=== PATIENT | male | born 1990 | race Two or more races ===

== ENCOUNTER 2025-03-16 07:40 | Emergency (ER) | payer MEDICAID, OTHER ==
[~2025-03-16] VITALS: Ht 177.8 cm; Wt 78.1 kg
[2025-03-16 07:45] VITALS: TEMP 97.8
[2025-03-16 08:04] VITALS: BP 138/68; PULSE 87
--- NOTE | 2025-03-16 08:05 | ED.PDOC ---
SOB-HPI HPI Comments 34-year-old male presents to the ER with a chief complaint of shortness of breath/wheezing. Patient reports on recently getting over a cold from one week ago and has been having shortness of breath for two days. Patient states that his inhalers not working so use using his mother's but has a different albuterol treatment. Patient currently has chest tightness and yellow phlegm. Last exacerbation 1 year ago Nighttime awakenings none Hospitalizations none Denies fever chills night sweats regular cough Chief Complaint: Shortness of Breath Time Seen by MD: 08:00 Reviewed notes: Nurses Notes, Medications, Allergies Information Source: Patient Mode of Arrival: Ambulatory Severity: Moderate Timing: Days Duration: Since onset, Days Context: Contact Exposure History of: Asthma Prehospital treatment: None Associated Signs and Symptoms: None Quality: Tightness Radiation: No Radiation Location: Substernal If cough with SOB: Yellow Past Medical History PAST MEDICAL HISTORY: Asthma Surgical History: Denies all surgeries Family History Family History: Reviewed,noncontributory to illness, Unknown Social History Smoker: Non-Smoker Alcohol: Denies ETOH Use Drugs: Denies Drug Use Lives In: Home Constitutional: denies: chills, diaphoresis, fatigue, fever, malaise, sweats, weakness, others EENTM: denies: blurred vision, double vision, ear bleeding, ear discharge, ear drainage, ear pain, ear ringing, eye pain, eye redness, hearing loss, mouth pain, mouth swelling, nasal discharge, nose bleeding, nose congestion, nose pain, photophobia, tearing, throat pain, throat swelling, voice changes, others Respiratory: reports: SOB at rest, shortness of breath; denies: cough, hemoptysis, orthopnea, SOB with excertion, stridor, wheezing, others Cardiovascular: denies: chest pain, dizzy spells, diaphoresis, Dyspnea on exertion, edema, irregular heart beat, left arm pain, lightheadedness, palpitations, PND, syncope, others Gastrointestinal: denies: abdomen distended, abdominal pain, blood streaked bowels, constipated, diarrhea, dysphagia, difficulty swallowing, hematemesis, melena, nausea, poor appetite, poor fluid intake, rectal bleeding, rectal pain, vomiting, others Genitourinary: denies: burning, dysuria, flank pain, frequency, hematuria, incontinence, penile discharge, penile sore, pain, testicle pain, testicle swelling, urgency, others Neurological: denies: dizziness, fainting, headache, left sided numbness, left sided weakness, numbness, paresthesia, pre-existing deficit, right sided numbness, right sided weakness, seizure, speech problems, tingling, tremors, weakness, others Musculoskeletal: denies: back pain, gout, joint pain, joint swelling, muscle pain, muscle stiffness, neck pain, others Integumetry: denies: bruises, change in color, change in hair/nails, dryness, laceration, lesions, lumps, rash, wounds, others Allergic/Immunocompromised: denies: Difficulty Healing, Frequent Infections, Hives, Itching, others Hematologic/Lymphatic: denies: anemia, blood clots, easy bleeding, easy bruising, swollen glands, others Endocrine: denies: excessive hunger, excessive sweating, excessive thirst, excessive urination, flushing, intolerance to cold, intolerance to heat, unexplained weight gain, unexplained weight loss, others Psychiatric: denies: anxiety, bipolar disorder, depression, hopeless, panic disorder, schizophrenia, sleepless, suicidal, others All Other Systems: Reviewed and Negative Physical Exam General Appearance: No Apparent Distress, Normal HEENT: Normal ENT Inspection, Pharynx Normal, TMs Normal Neck: Full Range of Motion, Non-Tender, Normal, Normal Inspection Respiratory: Chest Non-Tender, No Accessory Muscle Use, No Respiratory Distres s, Normal Breath Sounds, Wheezing Cardiovascular: No Edema, No JVD, No Murmur, No Gallop, Normal Peripheral Pulses, Regular Rate/Rhythm Breast Exam: Deferred Gastrointestinal: No Organomegaly, Non Tender, No Pulsatile Mass, Normal Bowel Sounds, Soft Genitalia: Deferred Pelvic: Deferred Rectal: Deferred Extremities: No calf tenderness, Normal capillary refill, Normal inspection, Normal range of motion, Non-tender, No pedal edema Musculoskeletal : Apperance: Normal 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 Was a procedure done?: No Differential Dx Differential Diagnosis: Asthma, Bronchitis, Pneumonia X-Ray, Labs, Meds, VS Vital Signs Date Time Temp Pulse Resp B/P (MAP) Pulse Ox O2 Delivery O2 Flow Rate FiO2 03/16/25 09:07 18 96 Room Air* 0 21 03/16/25 08:13 12 95 Room Air* 0 21 03/16/25 08:04 92 16 138/68 (91) 92 03/16/25 08:04 87 18 92 Room Air 03/16/25 07:51 98 03/16/25 07:45 97.8 94 18 120/80 96 97.8 Current Medications Medications (Trade) Dose Ordered Sig/Ava Route Start Time Stop Time Status Last Admin Albuterol (Ventolin Medneb) 5 mg ONCE ONCE NEB 03/16/25 08:00 03/16/25 08:01 DC 03/16/25 08:13 Ipratropium Ophiem (Atrovent Medneb) 0.5 mg ONCE ONCE NEB 03/16/25 08:00 03/16/25 08:01 DC 03/16/25 08:13 Budesonide (Pulmicort) 0.5 mg ONCE ONCE NEB 03/16/25 09:00 03/16/25 09:01 DC 03/16/25 09:07 Albuterol (Ventolin Medneb) 5 mg ONCE ONCE NEB 03/16/25 09:00 03/16/25 09:01 DC 03/16/25 09:07 Ipratropium Ophiem (Atrovent Medneb) 0.5 mg ONCE ONCE NEB 03/16/25 09:00 03/16/25 09:01 DC 03/16/25 09:07 X-Ray, Labs, Meds, VS Comment 34-year-old male presents to the ER with a chief complaint of shortness of breath. Patient arrives alert and oriented, ABC's intact, afebrile, vital signs stable, saturating well in room air Diagnostic imaging ordered by me and results interpreted by radiology : X-ray Patient presents with cough and expiratory wheezing, no tachypnea and no accessory muscle use Differentials considered but not limited to: PNA, bronchiolitis I also considered pulmonary embolism, CHF, COPD, however, this is less likely as the patients pulse oximetry is with normal limits and ambulating without difficulty. Chest x-ray was obtained, and interpreted independently by myself as not showing focal consolidations or lobar pneumonia. While in the ED, the patient was treated with Multiple rounds of Albuterol and Atrovent On reevaluation symptoms improved with treatment in the ED. Vital signs and exam reassuring. Lungs clear no wheezing. No labored breathing. No signs of respiratory distress. Patient was prescribed a short course of steroids. Inhaler prescribed as needed. Strict return precautions were discussed. Follow up with PCP 2-3 days. Additional MDM Review of External, Non-ED records: External records reviewed. Discussion with independent historian (EMS, family) history obtained from the patient/parents (if applicable) at bedside Chronic conditions affecting care: None Social determinants of health affecting care: None Consideration of admission (observation or admission): I considered escalation of care to admission for this patient, however given the reassuring workup, the patient is safe for outpatient management. Discussion with the Radiology: No Tests considered but not performed: Prescription medication considered but not given: Time of 1ST Reevaluation: 08:30 Reevaluation 1ST: Unchanged Time of 2ND Reevaluation: 10:02 Reevaluation 2ND: Improved Patient Education/Counseling: Diagnosis, Treatment, Prognosis Family Education/Counseling: No Family Present SEPSIS Sepsis Screen Date sepsis recognized/suspect: Mar 16, 2025 Time Sepsis recognized/suspect: 746 Recent Procedure: No On Antibiotic Therapy: No Respiratory Rate >20: No Heart Rate >90: No Temp<36 C (96.8 F) or >38.3 C: No SBP <90 or MAP <65 mmHG: No New Acute Mental Status Change: No Is the patient on CPAP, BIPAP,: No Physician Orders Chest Two Views Routine (03/16/25 07:59) Electrocardigram (03/16/25 08:27) Vital Signs Date Time Temp Pulse Resp B/P (MAP) Pulse Ox O2 Delivery O2 Flow Rate FiO2 03/16/25 09:07 18 96 Room Air* 0 21 03/16/25 08:13 12 95 Room Air* 0 21 03/16/25 08:04 92 16 138/68 (91) 92 03/16/25 08:04 87 18 92 Room Air 03/16/25 07:51 98 03/16/25 07:45 97.8 94 18 120/80 96 97.8 Medications Medications Dose Ordered Sig/Ava Route Start Time Stop Time Status Last Admin Dose Admin Albuterol 5 mg ONCE ONCE NEB 03/16/25 08:00 03/16/25 08:01 DC 03/16/25 08:13 Albuterol 5 mg ONCE ONCE NEB 03/16/25 09:00 03/16/25 09:01 DC 03/16/25 09:07 Budesonide 0.5 mg ONCE ONCE NEB 03/16/25 09:00 03/16/25 09:01 DC 03/16/25 09:07 Ipratropium Ophiem 0.5 mg ONCE ONCE NEB 03/16/25 08:00 03/16/25 08:01 DC 03/16/25 08:13 Ipratropium Ophiem 0.5 mg ONCE ONCE NEB 03/16/25 09:00 03/16/25 09:01 DC 03/16/25 09:07 Departure 1 Departure Time of Disposition: 10:04 Impression: Primary Impression: Asthma exacerbation Qualified Codes: J45.21 - Mild intermittent asthma with (acute) exacerbation Disposition: HOME / SELF CARE / HOMELESS Condition: Fair e-Prescriptions Albuterol Sulfate (Albuterol Sulfate Hfa) 108 Mcg/Act Aer 1 PUFF IN Q6HP PRN for 30 Days, #1 AER 0 Refills Prov: YOUSIF SALMERON NP 03/16/25 Methylprednisolone (Medrol Dosepak) 4 Mg Bhupendra 4 MG PO UD for 7 Days, #21 TAB 0 Refills UAD Prov: YOUSIF SALMERON NP 03/16/25 Critical Care Note Critical Care Time?: No Stability Stability form required: No Heart Score Heart Score: Heart Score Response (Comments) Value History N/A 0 EKG N/A 0 Age N/A 0 Risk Factors N/A 0 Troponin N/A 0 Total 0 I personally scribed for YOUSIF SALMERON NP ([email or web address]) on 03/16/25 at 08:05. Electronically submitted by Freddy Mcnulty ([email or web address]). YOUSIF SALMERON NP Mar 16, 2025 08:05
[2025-03-16] MEDS: ALBUTEROL SULF 2.5 MG/0.5ML(0.5%) NEB SOLN NEB ONE ×2 (08:13→09:07)
[2025-03-16] MEDS: IPRATROPIUM BROM 0.5 MG/2.5ML INH SOL NEB ONE ×2 (08:13→09:07)
--- NOTE | 2025-03-16 08:32 | DVH ---
XY CHEST TWO VIEWS ROUTINE, HISTORY: Wheezing COMPARISON: None None TECHNICAL DATA: 2 view of the chest was obtained. FINDINGS: Lines and tubes: None Cardiomediastinal silhouette: normal Pulmonary vasculature: normal Lung expansion: normal Lung airspace: normal Lung interstitium: normal Pleura: normal Pneumothorax: no Bones: Unremarkable Other: no IMPRESSION: No acute intrathoracic abnormality.
[2025-03-16 09:07] VITALS: RESP 18; O2SAT 96
[2025-03-16] MEDS: BUDESONIDE (INHALATION) 0.5 MG/2 ML NEB NEB ONE (09:07)
[2025-03-16] MEDS ORDERED: METH4PAK PO (10:05)
[2025-03-16] MEDS ORDERED: ALBU108A5 IN (10:05)
--- NOTE | 2025-03-18 14:12 | ECG ---
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
== END 2025-03-16 10:13 | disposition home or self-care (01) ==
LOC: ER 07:40
DX: J45.901 Unspecified asthma with (acute) exacerbation (principal)
CPT/HCPCS: 71046; 93005; 94640